=== PATIENT | male | born 1950 | race Asian ===

== ENCOUNTER 2018-05-24 16:11 | Emergency (ER) | payer BC, MEDICARE, OTHER ==
[~2018-05-24] VITALS: Ht 177.8 cm; Wt 86.2 kg
--- NOTE | 2018-05-24 16:11 | NUR ---
BIB SELF W C/O R SIDE BODY PAIN S/P SLIPPED AND FALL, -KO, TO ER BED 1, HOOKED TO MONITOR, CHANGED TO GOWN, AWAITING MD PRABHAKAR.
--- NOTE | 2018-05-24 16:30 | NUR ---
NATALIE ZURITA AT BEDSIDE
[2018-05-24] MEDS ORDERED: KETOROLAC TROMETHAMINE INJ 30 MG/ML VIAL ONE (16:37)
[2018-05-24] MEDS ORDERED: DIAZEPAM 5 MG TABLET ONE (16:37)
--- NOTE | 2018-05-24 16:39 | NUR ---
WHEELED OUT FOR CT LUMBAR SPINE
[2018-05-24] MEDS ORDERED: DIAZEPAM 10 MG TABLET PO ONE (17:00)
[2018-05-24] MEDS ORDERED: KETOROLAC TROMETHAMINE INJ 30 MG/ML VIAL IM ONE (17:00)
--- NOTE | 2018-05-24 17:55 | NUR ---
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
--- NOTE | 2018-05-24 18:32 | NUR ---
Patient discharged to home in stable condition. Written and verbal after care instructions given. Patient verbalizes understanding of instruction.
[2018-05-24 18:43] VITALS: BP 142/76
== END 2018-05-24 18:40 | disposition home or self-care (01) ==
LOC: ER 16:14
DX: S32.029A Unspecified fracture of second lumbar vertebra, initial encounter for closed fracture (principal); S32.039A Unspecified fracture of third lumbar vertebra, initial encounter for closed fracture; S32.049A Unspecified fracture of fourth lumbar vertebra, initial encounter for closed fracture; I10 Essential (primary) hypertension; E11.9 Type 2 diabetes mellitus without complications; W01.0XXA Fall on same level from slipping, tripping and stumbling without subsequent striking against object, initial encounter; Y93.89 Activity, other specified; Y92.89 Other specified places as the place of occurrence of the external cause; Y99.0 Civilian activity done for income or pay
CPT/HCPCS: 72131-TC; J1885